=== PATIENT | male | born 1940 | race Caucasian/White ===

== ENCOUNTER 2018-11-01 09:07 | Outpatient (CLI) | payer MEDICARE ==
[2018-11-01 10:53] LABS: Estimated GFR-MDRD - POC Greater than 90
--- NOTE | 2018-11-01 11:57 | CT ---
EXAM: CT pelvis with contrast HISTORY: Prostate cancer COMPARISON: None TECHNIQUE: Multiple contiguous axial images were obtained and a CT of the pelvis with contrast. Coron al reformats were performed. FINDINGS: Atherosclerotic calcification are seen in the aorta. The prostate is normal in size without obvious mass. The visualized large and small bowel are unremarkable. The visualized lower kidneys are unremarkable. No pelvic lymphadenopathy is seen. Degenerative changes are seen in the spine without suspicious osseous lesions identified. IMPRESSION: No significant acute abnormality.
== END 2018-11-01 09:08 | disposition home or self-care (01) ==
LOC: BICCT 09:07
PROVIDERS: ATTEND Urology
DX: C61 Malignant neoplasm of prostate (principal)
CPT/HCPCS: 72193; 82565

== ENCOUNTER 2018-11-06 09:08 | Outpatient (CLI) | payer MEDICARE ==
--- NOTE | 2018-11-06 13:54 | NM ---
WHOLE BODY BONE SCAN: HISTORY: Malignant neoplasm of prostate, fall 3 weeks ago, left-sided hip pain and bruising RADIOPHARMACEUTICAL: 30 mCi technetium 99m-MDP injected intravenously COMPARISON: None CORRELATION: CT pelvis 11/01/2018, CT brain 08/10/2014 FINDINGS: There scattered degenerative activity in the appendicular skeleton. Foci of increased uptake in the m axilla are likely due to periodontal disease. Focus of increased uptake in the medial left orbital wall is is likely posttraumatic. The left globe is small and calcified on the CT scan of brain dated 08/10/2014 suggesting remote injury/insult. Linear uptake along the intertrochanteric portion of the left proximal femur corresponds to the nondi splaced healing fracture seen on the CT pelvis of 11/01/2018. No other abnormal areas of tracer localization are seen in the skeleton to suggest metastatic disease. Tracer excretion through the kidneys is within normal limits. IMPRESSION: 1. No scintigraphic evidence of osseous metastatic disease. 2. Healing left intertrochanteric femur fracture. Discussed over the telephone with Dr. Brandon Vang at 1:50 PM
== END 2018-11-06 09:09 | disposition home or self-care (01) ==
LOC: NM 09:08
PROVIDERS: ATTEND Urology
DX: C61 Malignant neoplasm of prostate (principal); S72.142D Displaced intertrochanteric fracture of left femur, subsequent encounter for closed fracture with routine healing
CPT/HCPCS: 78306; A9503